=== PATIENT | male | born 1990 | race African-American/Black ===

== ENCOUNTER 2018-01-22 23:55 | Emergency (ER) | payer BC ==
[~2018-01-22] VITALS: Ht 167.6 cm; Wt 54.4 kg
[2018-01-23] MEDS ORDERED: IBUPROFEN 400 MG TABLET PO ONE (00:30)
[2018-01-23] MEDS ORDERED: IBUPROFEN 400 MG TABLET ONE (00:37)
[2018-01-23 01:00] VITALS: BP 130/81
== END 2018-01-23 01:16 | disposition home or self-care (01) ==
LOC: ER 23:59
DX: R51 Headache (principal)
CPT/HCPCS: A4606; Z7610